=== PATIENT | female | born 1985 | race Two or more races ===

== ENCOUNTER 2018-11-03 22:35 | Emergency (ER) | payer BC ==
[~2018-11-03] VITALS: Ht 147.3 cm; Wt 75.7 kg
[2018-11-03] MEDS ORDERED: CYMBALTA30 MG (23:17)
[2018-11-03] MEDS ORDERED: ACETAZOLAMIDE500 MG (23:17)
[2018-11-04] MEDS ORDERED: PEPCID40 MG PO (05:15)
[2018-11-04] MEDS ORDERED: ZOFRAN ODT8 MG PO (05:15)
== END 2018-11-04 05:24 | disposition home or self-care (01) ==
LOC: ER 22:35
DX: K29.60 Other gastritis without bleeding (principal)

== ENCOUNTER 2024-04-27 08:52 | Outpatient (CLI) | payer OTHER ==
[~2024-04-27 08:52] MED LIST: ACETAZOLAMIDE500 MG; CYMBALTA30 MG; PEPCID40 MG PO; ZOFRAN ODT8 MG PO
== END 2024-04-27 09:01 | disposition home or self-care (01) ==
LOC: TOM 08:52
PROVIDERS: ATTEND Obstetrics & Gynecology Reproductive Endocrinology
DX: N70.11 Chronic salpingitis (principal)